=== PATIENT | male | born 1975 | race Caucasian/White ===

== ENCOUNTER → 2016-09-07 | Outpatient (CLI) | payer BC ==
--- NOTE | 2016-09-07 10:52 | CR ---
EXAMINATION: Right and left knees HISTORY: Pain COMPARISON: MRI dated 06/29/2006 TECHNIQUE: 3 views bilaterally FINDINGS: There is no acute osseous abnormality, dislocation, or fracture identified. Bone mineraliz ation and joint spaces appear normal. No joint effusion. Moderate left prepatellar soft tissue thick ening. IMPRESSION: 1. Prepatellar soft tissue thickening, correlate for bursitis.
== END ==
LOC: MW.CHFP 08:02
PROVIDERS: ATTEND Emergency Medicine
DX: M25.561 Pain in right knee (principal); M25.562 Pain in left knee; M79.89 Other specified soft tissue disorders
CPT/HCPCS: 73562-26-LT; 73562-26-RT; 73562-LT; 73562-RT

== ENCOUNTER → 2016-09-15 | Outpatient (CLI) | payer BC ==
--- NOTE | 2016-09-15 16:41 | CR ---
EXAMINATION: Left knee HISTORY: Pain COMPARISON: 09/07/2016 TECHNIQUE: PA view FINDINGS/IMPRESSION: There is no acute osseous abnormality, dislocation, or fracture identified. Bon e mineralization and joint spaces appear normal.
== END | disposition home or self-care (01) ==
LOC: MW.CHORTHO 07:48
PROVIDERS: ATTEND Orthopaedic Surgery
DX: M25.561 Pain in right knee (principal); M25.562 Pain in left knee
CPT/HCPCS: 73560-26-LT; 73560-LT

== ENCOUNTER → 2016-09-17 | Outpatient (CLI) | payer BC ==
--- NOTE | 2016-09-18 09:52 | MR ---
EXAMINATION: MRI right knee HISTORY: Pain COMPARISON: None TECHNIQUE: Multiplanar and multisequence images obtained of the right knee without contrast. FINDINGS: The patellar and quadriceps tendons appear intact. The ACL and the PCL are intact. The med ial meniscus demonstrates a possible tiny undersurface tear of the posterior horn within the red zon e. The lateral meniscus appears preserved. The medial and lateral collateral ligament complexes are intact. There is a small joint effusion. Chondromalacia is noted within the patellofemoral compartme nt with mild subchondral edema and a 4 mm area of articular cartilage loss within the trochlear groo ve. There is a small Wiley's cyst. No suspicious bone marrow signal changes. IMPRESSION: 1. Moderate chondromalacia within the patellofemoral compartment with a 4 mm area of articular carti mariah loss within the trochlear groove. 2. Possible tiny undersurface tear of the posterior horn of the medial meniscus involving the red zo ne. 3. Small joint effusion.
--- NOTE | 2016-09-18 09:57 | MR ---
EXAMINATION: MRI of the left knee HISTORY: Pain COMPARISON: Radiographs dated 09/07/2016 TECHNIQUE: Multiplanar and multisequence images obtained of the left knee without contrast. FINDINGS: The patellar and quadriceps tendons appear intact. There is moderate fluid signal noted wi thin the prepatellar soft tissues. The medial and lateral collateral ligament complexes appear inta ct. The medial and lateral menisci are intact. The ACL is intact. The PCL has a mild buckled appeara nce however is grossly intact. There is a small joint effusion. Mild chondromalacia is noted within the patellofemoral compartment with a trace subchondral edema. There is a tiny Wiley's cyst. No susp icious bone marrow signal changes identified. IMPRESSION: 1. Prepatellar bursitis. 2. Mild chondromalacia within the patellofemoral compartment. 3. Small joint effusion.
== END | disposition home or self-care (01) ==
LOC: MW.MRI 11:39
PROVIDERS: ATTEND Orthopaedic Surgery
DX: M25.562 Pain in left knee (principal); M70.42 Prepatellar bursitis, left knee; M22.42 Chondromalacia patellae, left knee; M25.462 Effusion, left knee; M23.92 Unspecified internal derangement of left knee; M22.41 Chondromalacia patellae, right knee; M23.91 Unspecified internal derangement of right knee; M25.461 Effusion, right knee
CPT/HCPCS: 73721-26-LT; 73721-26-RT; 73721-LT; 73721-RT

== ENCOUNTER 2016-09-28 08:25 | Day surgery (SDC) | payer BC ==
[~2016-09-28 08:25] MED LIST: Acetaminophen/HYDROcodone 325-5 MG Tab PO PRN; Lactated Ringers 1,000 ML IV SCH; Lidocaine 1% 50 ML MDV ONE; Lidocaine 2% 5 ML SDV ONE; Midazolam 1 MG/ML 2 ML SDV ONE; Ondansetron 4 MG/2 ML SDV ONE; Propofol 200 MG/20 ML SDV ONE; ceFAZolin 2 GM in Premix Bag 1 BAG IV SCH; fentaNYL 250 MCG/5 ML SDV ONE
--- NOTE | 2016-09-28 09:21 | PCM.PREANE ---
Preanesthetic Assessment - Procedure Proposed Procedure: Bilateral knee arthroscopies - Anesthesia/Transfusion/Family Hx Anesthesia History: Prior Anesthesia Without Reaction Transfusion History: No Prior Transfusion(s) Intubation History: Unknown - Review of Systems General: No Symptoms Pulmonary: No Symptoms Cardiovascular: No Symptoms Gastrointestinal: Other (occasional acid reflux) Neurological: Other (pain in bilateral knees, hx of headaches) Other: Reports: None - Physical Assessment O2 Sat by Pulse Oximetry: 98 Respiratory Rate: 16 Vital Signs: Last Vital Signs Temp 97.5 F 09/28/16 08:53 Pulse 53 L 09/28/16 08:53 Resp 16 09/28/16 08:53 BP 150/92 H 09/28/16 08:53 Pulse Ox 98 09/28/16 08:53 Height: 5 ft 10 in Weight: 220 lb ASA Class: 2 Mental Status: Alert & Oriented x3 Airway Class: Mallampati = 1 Dentition: Reports: Normal Dentition Thyro-Mental Finger Breadths: 4 Mouth Opening Finger Breadths: 4 (stubble hale) ROM/Head Extension: Full Lungs: Clear to auscultation, Normal respiratory effort Cardiovascular: Regular Rate, Regular Rhythm, No Murmurs - Allergies Allergies/Adverse Reactions: Allergies Allergy/AdvReac Type Severity Reaction Status Date / Time erythromycin base Allergy Hives Verified 09/23/16 15:54 [Erythromycin Base] - Blood Blood Available: No Product(s) Available: None - Acknowledgements Anesthesia Type Planned: General Anesthesia (LMA) Pt an Appropriate Candidate for the Planned Anesthesia: Yes Alternatives and Risks of Anesthesia Discussed w Pt/Guardian: Yes Pt/Guardian Understands and Agrees with Anesthesia Plan: Yes PreAnesthesia Questionnaire HEENT History: Reports: Allergic rhinitis Cardiovascular History: Reports: None Respiratory History: Reports: None Gastrointestinal History: Reports: GERD Genitourinary History: Reports: Other (see below) Other Genitourinary History: born with 1 kidney Musculoskeletal History: Reports: Back pain, chronic, Fracture Other Musculoskeletal History: hx of fx wrist, fingers, scapula, vertebrate in lower back Other Neuro History: hx of motion sickness Psychiatric History: Reports: None Endocrine/Metabolic History: Reports: Obesity/BMI 30+ Hematologic History: Reports: None Immunologic History: Reports: None Oncologic (Cancer) History: Reports: None Dermatologic History: Reports: None - Past Surgical History Head Surgeries/Procedures: Reports: None HEENT Surgical History: Reports: None Cardiovascular Surgical History: Reports: None Respiratory Surgical History: Reports: None GI Surgical History: Reports: None Male Surgical History: Reports: None Endocrine Surgical History: Reports: None Neurological Surgical History: Reports: None Musculoskeletal Surgical History: Reports: Arthroscopic knee Oncologic Surgical History: Reports: None Dermatological Surgical History: Reports: None - SUBSTANCE USE Smoking Status *Q: Never Smoker Recreational Drug Use History: No - HOME MEDS Home Medications: Home Meds Esomeprazole Magnesium [Nexium] 40 mg PO DAILY 09/23/16 [History] Fluticasone Propionate [Flonase Allergy Relief] 2 spray NASBOTH ASDIRECTED PRN 09/23/16 [History] Rizatriptan Benzoate [Rizatriptan] 10 mg PO ASDIRECTED PRN MDD 30 09/23/16 [ History] - CURRENT (IN HOUSE) MEDS Current Meds: Current Medications Hydrocodone Bitart/Acetaminophen (Weld 325-5 Mg) 1 - 2 tab PO Q4H PRN PRN Reason: Pain Lactated Ringer's (Ringers, Lactated) 1,000 mls @ 100 mls/hr IV ASDIRECTED BLADIMIR Last Admin: 09/28/16 08:54 Dose: 100 mls/hr Cefazolin Sodium/Dextrose 2 gm (/ Premix) 50 mls @ 100 mls/hr IV ONCALL BLADIMIR Discontinued Medications Fentanyl (Sublimaze) Confirm Administered Dose 250 mcg .ROUTE .STK-MED ONE Stop: 09/28/16 07:40 Lidocaine (Xylocaine-Mpf 2%) Confirm Administered Dose 5 ml .ROUTE .STK-MED ONE Stop: 09/28/16 07:39 Lidocaine HCl (Xylocaine 1%) Confirm Administered Dose 50 ml .ROUTE .STK-MED ONE Stop: 09/28/16 07:56 Midazolam HCl (Versed 1 Mg/Ml) Confirm Administered Dose 2 mg .ROUTE .STK-MED ONE Stop: 09/28/16 07:40 Ondansetron HCl (Zofran) Confirm Administered Dose 4 mg .ROUTE .STK-MED ONE Stop: 09/28/16 07:39 Propofol (Diprivan 20 Ml) Confirm Administered Dose 200 mg .ROUTE .STK-MED ONE Stop: 09/28/16 07:39
[2016-09-28] MEDS ORDERED: ceFAZolin 1 GM Vial ONE (10:18)
[2016-09-28] MEDS ORDERED: Sodium Chloride 0.9% 20 ML ONE (10:18)
--- NOTE | 2016-09-28 11:21 | PCM.OPNOTE ---
- General Post-Op/Procedure Note Date of Surgery/Procedure: 09/28/16 Operative Procedure(s): R knee arthroscopy with PMM, chondroplasty pat/ trochlear groove. L knee arthroscopy with chondroplasty trochlear groove Post-Op Diagnosis: DJD R and L knee. R knee medial meniscus tear Anesthesia Technique: General ET tube Primary Surgeon: Callie Mchugh Fitting Supervisor: Rolando Cardoza EBNoemí in mLs: 5 Condition: Good Free Text/Narrative:: tt=23 min R, 12 min L #[id number]
[2016-09-28] MEDS: fentaNYL 100 MCG/2 ML SDV IVPUSH PRN ×2 (11:44→11:51)
--- NOTE | 2016-09-28 12:03 | PCM.POSTAN ---
POST ANESTHESIA ASSESSMENT - MENTAL STATUS Mental Status: alert, oriented - RESPIRATORY Respiratory Status: respiratory rate WNL, airway patent, O2 saturation stable - CARDIOVASCULAR CV Status: pulse rate WNL, blood pressure stable - GASTROINTESTINAL GI Status: no symptoms - PAIN Pain Score: 1 - POST OP HYDRATION Hydration Status: adequate & stable
[2016-09-28 12:59] VITALS: BP 138/94
--- NOTE | 2016-09-28 14:57 | OR ---
SURGEON: Callie Mchugh MD DATE OF PROCEDURE: 09/28/2016 PREOPERATIVE DIAGNOSES: 1. Chondromalacia right patella. 2. Chondromalacia left patella. POSTOPERATIVE DIAGNOSES: 1. Degenerative joint disease left knee. 2. Degenerative joint disease right knee. 3. Right knee medial meniscus tear. PROCEDURE: 1. Right knee arthroscopy with partial medial meniscectomy and chondroplasty of the patella and trochlear groove. 2. Left knee arthroscopy with chondroplasty of the trochlear groove. CREW TRAINER: Rolando Cardoza PA-C. ANESTHESIA: General. ESTIMATED BLOOD LOSS: 5 mL. TOURNIQUET TIME: 23 minutes on the right and 12 minutes on the left. COMPLICATIONS: None. DVT PROPHYLAXIS: Not indicated. IMPLANTS USED: None. BRIEF HISTORY: Leoncio is a 41-year-old male, who has had complaint of progressive bilateral knee pain. He had failed conservative treatment. Due to his lack of response to conservative treatment, I did recommend surgical intervention. The risks and goals of procedure were discussed with the patient and were documented preoperatively. He agreed to proceed. DESCRIPTION OF PROCEDURE: The patient was properly identified and brought to the operating room. He was transferred from the OR cart and placed on the operating table in supine position. General anesthesia was administered. After adequate anesthesia was obtained, a well-padded tourniquet was applied to both lower extremities. The lower extremities were then prepped in standard fashion using ChloraPrep solution. They were then sterilely draped. A time-out was performed to ensure correct site and procedure. Preoperative antibiotics were given. The surgical sites were not marked preoperatively due to the bilateral nature of the procedure. Right knee arthroscopy: An Esmarch was used to exsanguinate the right lower extremity and the tourniquet was inflated to 250 mmHg. A lateral portal arthrotomy was established. Blunt trocar and cannula were introduced into the suprapatellar pouch. Camera, inflow, and outflow were assembled. No significant synovitis was noted in the suprapatellar pouch. Patellofemoral joint was visualized. Grade 2 chondromalacia was noted along the central and inferior portion of the patella. Patella appeared to track centrally. Extensive degenerative changes were also noted along the central portion of the trochlear groove. I then extended down the lateral and medial gutter. No loose bodies were identified. I then entered the medial compartment. A medial portal arthrotomy was established and a blunt probe was inserted. He was found to have a nearly full- thickness tear of the undersurface of the posterior horn of the medial meniscus. Using a combination of biters and shaver, this was resected back to a stable remnant. The remainder of the meniscus was probed and found to be stable. The joint surfaces showed evidence of grade 1 to grade 2 diffuse chondromalacia. I then entered the notch. Both the ACL and PCL were visualized and probed and found to be intact. I then entered the lateral compartment. The lateral joint surfaces showed softening consistent with grade 1 chondromalacia. The meniscus was extensively probed and found to be stable. I then re-entered the patellofemoral joint. The area of wear along the undersurface of the patella measured approximately 10 mm x 5 mm. This was probed and a few of the degenerative changes appear to be loose. I did use a shaver to perform a chondroplasty to resect the cartilage damage back to a stable remnant. I then turned my attention to the trochlear groove. There was an area of approximately 15 mm x 15 mm, which was nearly full thickness cartilage loss along the central portion of the trochlear groove. The patella did contact this area at approximately 30 degrees of flexion. The defect was probed. The edges showed loose flaps of cartilage. The shaver was used to debride the loose flaps to a stable remnant. At the completion, the area was again probed and no remaining loose pieces of cartilage were found. Instruments were then removed from the knee. The portal sites were closed with 3-0 nylon. Lidocaine 1% was injected along the portal tracts. Xeroform gauze was placed over the wound and a bulky dressing was applied. Tourniquet was then deflated. Left knee arthroscopy. An Esmarch was used to exsanguinate the left lower extremity and the tourniquet was inflated to 250 mmHg. A lateral portal arthrotomy was established. Blunt trocar and cannula were introduced into the suprapatellar pouch. Camera, inflow, and outflow were assembled. No significant synovitis was noted in the suprapatellar pouch. The patellofemoral joint was visualized. Extensive degenerative changes were noted along the trochlear groove. The patella appeared to track centrally. I then extended down the lateral and medial gutter. No loose bodies were identified. I then entered the medial compartment. A medial portal arthrotomy was established. A blunt probe was inserted. The meniscus was probed. No tearing or instability was noted. The chondral surfaces showed softening consistent with grade 1 chondromalacia. I then entered the notch. Both the ACL and PCL were visualized and probed and found to be intact. I then entered the lateral compartment. There again showed softening of the cartilage consistent with grade 1 chondromalacia along the lateral femoral condyle as well as lateral tibial plateau. The meniscus was extensively probed. No tearing or instability was noted. I then re-entered the patellofemoral joint. The patella did not show significant signs of degenerative changes. The defect along the central portion of the trochlea measured approximately 20 mm in length and by 15 mm in width. There was loose cartilage associated with this area. I did use a shaver to debride the edges of the cartilage back to a stable remnant. The patella appeared to contact the surface at approximately 30 degrees of flexion. Instruments were then removed from the knee. The portal sites were closed with 3-0 nylon. Lidocaine 1% was injected along the portal tracts. Xeroform gauze was placed over the wound and a bulky dressing was applied. Tourniquet was then deflated. He was awakened from his anesthetic and transferred back to the operating room cart. He was brought to recovery room in stable condition. All needle and sponge counts were correct. JANINA / ALEN /[id number]
== END 2016-09-28 12:55 | disposition home or self-care (01) ==
LOC: MW.SDS 08:25
PROVIDERS: ATTEND Orthopaedic Surgery
PROC: 0SBC4ZZ Excision of Right Knee Joint, Percutaneous Endoscopic Approach (ICD-10-PCS; principal; 2016-09-28)
DX: M17.0 Bilateral primary osteoarthritis of knee (principal); M94.261 Chondromalacia, right knee; S83.241A Other tear of medial meniscus, current injury, right knee, initial encounter; M94.262 Chondromalacia, left knee; K21.9 Gastro-esophageal reflux disease without esophagitis; E66.9 Obesity, unspecified; Z87.440 Personal history of urinary (tract) infections; Z88.1 Allergy status to other antibiotic agents; Z79.899 Other long term (current) drug therapy; Z98.890 Other specified postprocedural states; Z68.31 Body mass index [BMI] 31.0-31.9, adult
CPT/HCPCS: 29881; A9270; J0690; J2250; J2405; J3010; J7120; 01400; 88304; J2704

== ENCOUNTER 2019-05-18 12:02 | Day surgery (SDC) | payer OTHER, BC ==
[~2019-05-18 12:02] MED LIST changes: -Acetaminophen/HYDROcodone 325-5 MG Tab PO PRN; +Betamethasone Acetate/Betamethasone Sod Phosphate 30 MG/5 ML MDV EPIDUR ONE; +Iopamidol 200-M 10 ML vial ITHECAL ONE; -Lactated Ringers 1,000 ML IV SCH; -Lidocaine 1% 50 ML MDV ONE; +Lidocaine 2% 5 ML SDV INJECT ONE; -Lidocaine 2% 5 ML SDV ONE; -Midazolam 1 MG/ML 2 ML SDV ONE; -Ondansetron 4 MG/2 ML SDV ONE; -Propofol 200 MG/20 ML SDV ONE; +Ropivacaine 0.5% 5 MG/ML 30 ML SDV INJECT ONE; -ceFAZolin 2 GM in Premix Bag 1 BAG IV SCH; -fentaNYL 250 MCG/5 ML SDV ONE
--- NOTE | 2019-05-18 19:09 | OR ---
SURGEON: Victorina Grossman D.O. DATE OF PROCEDURE: 05/18/2019 PRIMARY SURGEON: Victorina Grossman D.O. ASSISTANTS: OR staff present: 1. Pretty Busch. 2. Candi Gorman RN. PREOPERATIVE DIAGNOSES: 1. Lumbar degenerative disk disease, L4-5, L5-S1. 2. Lumbar radiculopathy bilateral lower extremities. 3. Lumbar L4-5 and L5-S1 Neuroforaminal stenosis. 4. Chronic low back pain. POSTOPERATIVE DIAGNOSES: 1. Lumbar degenerative disk disease, L4-5, L5-S1. 2. Lumbar radiculopathy bilateral lower extremities. 3. Lumbar L4-5 and L5-S1 Neuroforaminal stenosis. 4. Chronic low back pain. PROCEDURES PERFORMED: 1. Right L4 transforaminal epidural steroid injection. 2. Left S1 transforaminal epidural steroid injection. 3. Fluoroscopic guidance for needle placement. 4. Local with oral Valium for sedation. SCREENING QUESTIONS: The patient answered "no" to all of the following questions: 1. Are you allergic to iodine, Betadine or latex? 2. Do you have a bleeding disorder? 3. Do you have any joint replacements, heart valve replacements, or a pacemaker? 4. Are you allergic to anti-inflammatories or blood thinners? 5. Do you have any current local or systemic infections? MEDICAL NECESSITY: This is a patient with a history of chronic low back pain and lower extremity radicular pain in the above dermatomal pattern that comes in for the above diagnostic and therapeutic procedure. Pertinent positives and negatives for this suspected disease process along with the diagnostic findings and testing are in the patient's history and physical exam. The most salient feature includes radicular pain in the above dermatomal pattern. The patient had failed attempts at conservative therapy including physical therapy, nonsteroidal anti- inflammatory drugs, and other medications. No contraindications to perform this procedure including medical, no bleeding disorders or infections, no psychological, no antisocial personality disorder or active addiction disorder. There are no work-related issues, and, in general, the patient does not have any history of multiple prior interventions, surgeries or nerve blocks which have failed to return the patient to function. The patient's other symptoms to be treated include numbness, paresthesia, dysesthesia or hypoesthesia referred into the left lower extremity or any weakness in the involved myotome. This procedure is being performed in accordance with national guidelines as written by the [employer] ([place]). DESCRIPTION OF PROCEDURE: The patient had the procedure thoroughly explained including risks, benefits and alternatives. Consent was signed in my clinic indicating understanding and willingness to proceed. The patient presented to [facility] where the patient was escorted to the dressing room to disrobe and change into a hospital gown. Preoperative vital signs were taken and stable. The patient reported that Valium was taken prior to the procedure. The patient was brought to the procedure room and placed in the prone position on the table. A pillow was placed under the abdomen in order to flatten the lumbar lordosis. The back was prepped with ChloraPrep and sterilely draped. All personnel in the operating room were dressed in appropriate attire including surgical scrubs, head and shoe covers. This was to ensure sterility while in the treatment room. During the time fluoroscopy was in use, all personnel in the operating room wore lead bingham with thyroid collars. Sterile technique was used during the procedure. The fluoroscope was placed for the right L4 transforaminal epidural steroid injection. There was no sign of infection at the skin site for needle insertion. The skin was anesthetized with 2% lidocaine with a 27 gauge 1-1/2 inch needle. Then a 22 gauge 3-1/2 inch spinal needle, advanced to the right L4 foramen at the "6 o'clock position of the eye the Jagdish dog." Under direct fluoroscopic guidance needle position was verified in three views; AP, oblique and lateral, with 0.2 cubic centimeters increments of Isovue-200 dye. No intravascular flow pattern was observed under live fluoroscopy. Then a 3 mL mixture of 6 milligrams of Celestone and 0.5% ropivacaine was slowly injected after negative aspiration of heme, cerebrospinal fluid and no paresthesias were noted. The needle was cleared prior to removal from the skin. The procedure was then repeated for the left S1 transforaminal epidural steroid injection. The fluoroscope was placed for the left S1 transforaminal injection. There was no sign of infection at the site of needle insertion. The skin was anesthetized with 2% lidocaine with a 27-gauge 1-1/2 inch needle. Then a 22-gauge 3-1/2 inch spinal needle was advanced to the left S1 Foramen. Under direct fluoroscopic guidance the needle position was verified in AP oblique and lateral views. Then with 0.2 mL increments of Isovue-200 contrast dye. This showed no intravascular flow pattern and adequate flow over the target nerves in the epidural space. Then after negative aspiration, a 3 mL mixture of 6 mg Celestone and 0.5% ropivacaine was slowly injected. The needle was cleared prior to removal from the skin. No adverse reactions were noted. The patient was brought to the recovery room awake and in good condition by my staff. The patient was monitored and discharge instructions were given after a brief stay in the recovery area. Both oral and written discharge and follow up instructions were given. The patient will follow up in the clinic in 3-4 weeks post procedure to evaluate the efficacy. The patient verbalized understanding including understanding of those signs and symptoms that would require emergency care and knows how to contact the office if there are any problems or questions in the meantime. PREOPERATIVE PAIN: 7/10. POSTOPERATIVE PAIN: 0/10. FOLLOWUP: Follow up in the Pain Clinic in 1 month. DANICA / ALEN /[id number] CARLITA
== END 2019-05-18 14:10 | disposition home or self-care (01) ==
LOC: MW.SDS 12:02
PROVIDERS: ATTEND Anesthesiology
DX: G89.29 Other chronic pain (principal); M51.16 Intervertebral disc disorders with radiculopathy, lumbar region; M51.37 Other intervertebral disc degeneration, lumbosacral region; M48.061 Spinal stenosis, lumbar region without neurogenic claudication
CPT/HCPCS: 64483; 64484; J0702; 62323

== ENCOUNTER 2019-07-04 11:05 | Day surgery (SDC) | payer OTHER, BC ==
--- NOTE | 2019-07-04 22:08 | OR ---
SURGEON: iVctorina Grossman D.O. DATE OF PROCEDURE: 07/04/2019 PRIMARY SURGEON: Victorina Grossman D.O. SHAMPOO TECHNICIAN: OR staff present: 1. Kayla Vale RN. 2. Feroz Nichole RN. 3. Pretty Mars, RT. PREOPERATIVE DIAGNOSES: 1. Lumbar degenerative disk disease, L4-5, L5-S1. 2. Lumbar S1 radiculopathy, left lower extremity. POSTOPERATIVE DIAGNOSES: 1. Lumbar degenerative disk disease, L4-5, L5-S1. 2. Lumbar S1 radiculopathy, left lower extremity. PROCEDURE PERFORMED: 1. Left transforaminal epidural steroid injection at S1. 2. Fluoroscopic guidance for needle placement. 3. Local with oral Valium for sedation. SCREENING QUESTIONS: The patient answered "no" to all of the following questions: 1. Are you allergic to iodine, Betadine or latex? 2. Do you have a bleeding disorder? 3. Do you have any joint replacements, heart valve replacements, or a pacemaker? 4. Are you allergic to anti-inflammatories or blood thinners? 5. Do you have any current local or systemic infections? MEDICAL NECESSITY: This is a patient with a history of chronic low back pain and lower extremity radicular pain in the above dermatomal pattern that comes in for the above diagnostic and therapeutic procedure. Pertinent positives and negatives for this suspected disease process along with the diagnostic findings and testing are in the patient's history and physical exam. The most salient feature includes radicular pain in the above dermatomal pattern. The patient had failed attempts at conservative therapy including physical therapy, nonsteroidal anti- inflammatory drugs, and other medications. No contraindications to perform this procedure including medical, no bleeding disorders or infections, no psychological, no antisocial personality disorder or active addiction disorder. There are no work-related issues, and, in general, the patient does not have any history of multiple prior interventions, surgeries or nerve blocks which have failed to return the patient to function. The patient's other symptoms to be treated include numbness, paresthesia, dysesthesia or hypoesthesia referred into the left lower extremity or any weakness in the involved myotome. This procedure is being performed in accordance with national guidelines as written by the [employer] (LESLEE). DESCRIPTION OF PROCEDURE: The patient had the procedure thoroughly explained including risks, benefits and alternatives. Consent was signed in my clinic indicating understanding and willingness to proceed. The patient presented to [facility] where the patient was escorted to the dressing room to disrobe and change into a hospital gown. Preoperative vital signs were taken and stable. The patient reported that Valium was taken prior to the procedure. The patient was brought to the procedure room and placed in the prone position on the table. A pillow was placed under the abdomen in order to flatten the lumbar lordosis. The back was prepped with ChloraPrep and sterilely draped. All personnel in the operating room were dressed in appropriate attire including surgical scrubs, head and shoe covers. This was to ensure sterility while in the treatment room. During the time fluoroscopy was in use, all personnel in the operating room wore lead bingham with thyroid collars. Sterile technique was used during the procedure. The fluoroscope was placed for the S1 transforaminal epidural steroid injection. There was no sign of infection at the skin site for needle insertion. The skin was anesthetized with 2% lidocaine with a 27 gauge 1-1/2 inch needle. Then a 22 gauge 3-1/2 inch spinal needle, advanced to the S1. Under direct fluoroscopic guidance needle position was verified in three views; AP, oblique and lateral, with 0.2 cubic centimeters increments of Isovue-200 dye. No intravascular flow pattern was observed under live fluoroscopy. Then 12 milligrams of Celestone was slowly injected after negative aspiration of heme, cerebrospinal fluid and no paresthesias were noted. The needle was cleared prior to removal from the skin. No adverse reactions were noted. The patient was brought to the recovery room awake and in good condition by my staff. The patient was monitored and discharge instructions were given after a brief stay in the recovery area. Both oral and written discharge and follow up instructions were given. The patient will follow up in the clinic in 3-4 weeks post procedure to evaluate the efficacy. The patient verbalized understanding including understanding of those signs and symptoms that would require emergency care and knows how to contact the office if there are any problems or questions in the meantime. PREOPERATIVE PAIN: 12/14. POSTOPERATIVE PAIN: 07/17. HOGLCHR / MODL /[id number]
== END 2019-07-04 12:50 | disposition home or self-care (01) ==
LOC: MW.SDS 11:05
PROVIDERS: ATTEND Anesthesiology
DX: G89.29 Other chronic pain (principal); M51.17 Intervertebral disc disorders with radiculopathy, lumbosacral region; M51.16 Intervertebral disc disorders with radiculopathy, lumbar region; M48.061 Spinal stenosis, lumbar region without neurogenic claudication; M48.07 Spinal stenosis, lumbosacral region; I10 Essential (primary) hypertension; E78.00 Pure hypercholesterolemia, unspecified; K21.9 Gastro-esophageal reflux disease without esophagitis; G43.009 Migraine without aura, not intractable, without status migrainosus; Z79.1 Long term (current) use of non-steroidal anti-inflammatories (NSAID); Z79.899 Other long term (current) drug therapy
CPT/HCPCS: 64483; J0702